=== PATIENT | female | born 1935 | race Caucasian/White ===

== ENCOUNTER → 2016-10-10 | Outpatient (CLI) | payer MEDICARE ==
[~2016-10-10] MED LIST: ADVIL JUNIOR100 MG PO; AMBIEN 5MG TABLE5 MG PO; AMOXICILLIN875 MG PO; ASPIRIN 32325 MG/TAB PO; ATIVAN 0.50.5 MG/TAB PO; CARAFATE 1GM1 G PO; COLACE 100100 MG/CAP PO; FENTANYL 25 MCG TOP; GOOD SENSE400 MG/5 M PO; KRISTALOSE20 GM/PACK PO; LEVAQUIN 750MG750 M1 PO; LIDODERM PATCH TP; LORTAB 5/500 501 TAB PO; LOVENOX 4040 MG/0.4 SQ; NICODERM C21 MG/PATC TOP; NORCO 325 MG-7.1 TAB PO; PRILOSEC 20MG20 MG PO; PRINIVIL5 MG PO; PROZAC 10MG10 MG PO; REQUIP 0.5MG0.5 MG PO; TYLENOL 325MG325 MG PO; TYLENOL 500MG500 MG PO; ULTRAM 50MG TAB50 MG PO; VICODIN 5/5001 UDTAB PO; ZOFRAN 4MG T4 MG/TAB PO
[2016-10-10 19:58] LABS: CALCIUM 11.1 mg/dL (8.4-10.2); CREATININE, serum 2.15 mg/dL (0.52-1.25); POTASSIUM 4.7 mmol/L (3.4-5.0)
== END ==
LOC: ZCOL.LAB 19:30
PROVIDERS: Internal Medicine
DX: E55.9 Vitamin D deficiency, unspecified (principal); Z02.89 Encounter for other administrative examinations

== ENCOUNTER → 2016-10-23 | Outpatient (CLI) | payer MEDICARE ==
[2016-10-23 21:12] LABS: CALCIUM 10.5 mg/dL (8.4-10.2); CREATININE, serum 2.1 mg/dL (0.52-1.25); POTASSIUM 4.6 mmol/L (3.4-5.0)
== END ==
LOC: ZCOL.LAB 20:44
PROVIDERS: Internal Medicine
DX: Z02.89 Encounter for other administrative examinations (principal)

== ENCOUNTER → 2016-12-28 | Outpatient (CLI) | payer MEDICARE | LOC: ZCOL.LAB 15:55 | PROVIDERS: Internal Medicine | DX: Z00.00 Encounter for general adult medical examination without abnormal findings (principal); E55.9 Vitamin D deficiency, unspecified ==

== ENCOUNTER → 2017-01-05 | Outpatient (CLI) | payer MEDICARE | LOC: ZCOL.LAB 12:13 | DX: E55.9 Vitamin D deficiency, unspecified (principal) ==

== ENCOUNTER 2018-09-03 16:02 | Observation (INO) | payer MEDICARE, OTHER ==
[~2018-09-03] VITALS: Ht 165.1 cm; Wt 52.6 kg
[2018-09-03] MEDS ORDERED: NORCO 325 MG-51 TAB PO (16:41)
[2018-09-03 16:45] LABS: BASO # 0.1 (0.0-0.2); BASO % 0.6 % (0.0-2.0); EOS # 0.2 (0.0-0.7); EOS % 1.8 % (0-4.0); GRAN # 6.7 (1.4-6.5); GRAN % 72.2 % (42.2-75.2); HEMOGLOBIN 11.7 g/dl (12.5-16.0); LYMPH # 1.7 (1.2-3.4); LYMPH % 18.4 % (20.0-51.0); MEAN CELL VOLUME 93 fl (80.0-100.0); MEAN CORPUSCULAR HEMOGLOBIN 31 pg (27.0-31.0); MEAN CORPUSCULAR HGB CONC 33 g/dl (33.0-37.0); MEAN PLATELET VOLUME 10.3 fl (7.4-10.4); MONO # 0.6 (0.1-0.6); MONO % 6.4 % (1.7-9.3); PLATELET COUNT 234 K/mm3 (130-400); RED BLOOD COUNT 3.76 M/mm3 (4.10-5.30); REDCELL DISTRIBUTION WIDTH-CV 13.2 % (11.5-14.5)
[2018-09-03 17:03] LABS: ALBUMIN 4.2 gm/dL (3.5-5.0); BILIRUBIN,TOTAL 0.4 mg/dL (0.0-1.0); CALCIUM 9.6 mg/dL (8.4-10.2); CREATININE, serum 2.31 mg/dL (0.52-1.25); POTASSIUM 4.5 mmol/L (3.4-5.0); TOTAL PROTEIN 7.2 gm/dL (6.4-8.2)
--- NOTE | 2018-09-03 18:00 | NUR ---
Patient up to room 342 by cheri. RLE in [facility], pedal pulses intact. Patient and family oriented to room. Call light in reach. Patient states she is feeling nauseated, given medications per orders. IV to left AC infusing fluids per orders via pump.
--- NOTE | 2018-09-03 18:18 | NUR ---
Patient down with radiology by bed.
--- NOTE | 2018-09-03 20:15 | NUR ---
Shift assessment complete. Patient denies pain. Laying in bed, awake. Denies needs at this time. Will continue to monitor.
[2018-09-03 20:20] VITALS: BP 153/99; PULSE 115; TEMP 97.5
[2018-09-03 23:48] VITALS: BP 150/86; PULSE 106; TEMP 97.9
--- NOTE | 2018-09-04 02:10 | NUR ---
Attempted to go through home medications with patient. Patient unable to accurately give information regarding home meds. Will notify day shift.
--- NOTE | 2018-09-04 03:54 | NUR ---
Patient c/o 9/10 pain in right leg after using bed [facility]cdermott. IV pain medication given as ordered. C/o nausea. Antiemetic given per order. Pants and underwear cut off due to being wet, per patient request. Ok to throw pants and underwear away, per pt request.
[2018-09-04 03:57] VITALS: BP 94/70; PULSE 99; TEMP 97.8
--- NOTE | 2018-09-04 04:14 | NUR ---
Patient urinating small amounts, frequently. Strong odor. U/A collected. Will wait for U/A to result.
[2018-09-04 04:29] LABS: COLLECTION METHOD CLEAN CATCH
[2018-09-04 04:47] LABS: MUCOUS Present /lpf; PH 7 (5-8); SQUAMOUS EPITHELIAL 20-50 /hpf; URINE APPEARANCE Cloudy; URINE BACTERIA Rare /hpf; URINE BILIRUBIN Negative (NEGATIVE); URINE BLOOD Negative (NEGATIVE); URINE COLOR Amber; URINE GLUCOSE Negative (NEGATIVE); URINE KETONE Negative (NEGATIVE); URINE LEUKOCYTE ESTERASE 1+ (NEGATIVE); URINE NITRATE Negative (NEGATIVE); URINE PROTEIN(semi-quant) 2+ (NEGATIVE); URINE TRIPLE PHOSPHATE CRYSTAL Present /hpf; URINE UROBILINOGEN Negative (NEGATIVE)
[2018-09-04 07:10] LABS: BASO % 0.2 % (0.0-2.0); GRAN # 10.8 (1.4-6.5); GRAN % 85.8 % (42.2-75.2); HEMOGLOBIN 10.6 g/dl (12.5-16.0); LYMPH # 0.8 (1.2-3.4); LYMPH % 6.1 % (20.0-51.0); MEAN CELL VOLUME 97 fl (80.0-100.0); MEAN CORPUSCULAR HEMOGLOBIN 31 pg (27.0-31.0); MEAN CORPUSCULAR HGB CONC 32 g/dl (33.0-37.0); MEAN PLATELET VOLUME 10.3 fl (7.4-10.4); MONO # 0.9 (0.1-0.6); MONO % 7.3 % (1.7-9.3); PLATELET COUNT 242 K/mm3 (130-400); RED BLOOD COUNT 3.39 M/mm3 (4.10-5.30); REDCELL DISTRIBUTION WIDTH-CV 13.3 % (11.5-14.5)
[2018-09-04 07:11] LABS: HEMATOCRIT 32.8 % (37.0-47.0)
[2018-09-04 07:13] LABS: CALCIUM 9.1 mg/dL (8.4-10.2); CREATININE, serum 2.22 mg/dL (0.52-1.25); POTASSIUM 4.8 mmol/L (3.4-5.0)
--- NOTE | 2018-09-04 08:00 | NUR ---
Patient in bed resting. Alert and forgetful. Pedal pulses intact. RLE in irom brace. Denies pain at this time. Denies further needs at this time.
[2018-09-04 09:30] VITALS: BP 145/84; PULSE 96; TEMP 97.5
--- NOTE | 2018-09-04 10:42 | NUR ---
Initial visit; Patient thanked Plumber Supervisor for looking in on her and offering comfort and prayer. Plumber Supervisor offered encouragement as well and will follow up while patient is here at [facility].
[2018-09-04] MEDS ORDERED: ADVIL200 MG PO (10:54)
[2018-09-04 11:30] VITALS: BP 151/76; PULSE 95; TEMP 97.7
[2018-09-04 13:48] LABS: COLLECTION METHOD CLEAN CATCH
[2018-09-04 13:58] LABS: PH 7 (5-8); SQUAMOUS EPITHELIAL 0-2 /hpf; URINE APPEARANCE Hazy; URINE BACTERIA None Seen /hpf; URINE BILIRUBIN Negative (NEGATIVE); URINE BLOOD Negative (NEGATIVE); URINE COLOR Yellow; URINE GLUCOSE Negative (NEGATIVE); URINE KETONE Negative (NEGATIVE); URINE LEUKOCYTE ESTERASE 2+ (NEGATIVE); URINE NITRATE Negative (NEGATIVE); URINE PROTEIN(semi-quant) 1+ (NEGATIVE); URINE RBC 0-2 /hpf; URINE UROBILINOGEN Negative (NEGATIVE)
--- NOTE | 2018-09-04 14:58 | NUR ---
SW contatced patient's son, Alex ([phone]) about PT/OT recommending SNF. SW explained to Alex that Medicare will not cover SNF due to observation status. Alex reports he is unable to private pay for SNF. SW inquired if patient has ever applied for medicaid and if not, would that be something they would like to do. Alex reports he would like to meet with a financial counselor about that. Alex will be here tomorrow morning to complete medicaid amor with the financial counselor.
[2018-09-04 15:34] VITALS: BP 145/72; PULSE 89; TEMP 97.6
--- NOTE | 2018-09-04 18:23 | NUR ---
Patient has been up in chair most of the day. x1 assist to comode. Restarted iv to left forarm. Discontinued IV to right forarm d/t infiltration of NS. Catheter tip intact. Denies further needs at this time. Will report off to team leader/research psychologist.
[2018-09-04 20:00] VITALS: BP 151/69; PULSE 47; TEMP 97.3
[2018-09-04 23:48] VITALS: BP 116/68; PULSE 105; TEMP 97.7
[2018-09-05 03:24] VITALS: BP 84/54; PULSE 97; TEMP 98.1
--- NOTE | 2018-09-05 04:56 | NUR ---
Pt rested during the night, no C/O pain, neuro checks have shown no deficit, no problems noted during shift assessments, VS have remained stable.
--- NOTE | 2018-09-05 07:00 | NUR ---
Pt AAOx3 stating wish to rest more. Denies pain at this time. States pt's son will be in to visit this morning.
[2018-09-05 07:38] VITALS: BP 140/68; PULSE 96; TEMP 97.8
[2018-09-05 07:57] LABS: BASO % 0.4 % (0.0-2.0); EOS # 0.1 (0.0-0.7); EOS % 0.7 % (0-4.0); GRAN # 8.2 (1.4-6.5); GRAN % 82.2 % (42.2-75.2); LYMPH # 0.9 (1.2-3.4); LYMPH % 8.6 % (20.0-51.0); MEAN CELL VOLUME 98 fl (80.0-100.0); MEAN CORPUSCULAR HGB CONC 32 g/dl (33.0-37.0); MEAN PLATELET VOLUME 10.2 fl (7.4-10.4); MONO # 0.7 (0.1-0.6); MONO % 7.3 % (1.7-9.3); PLATELET COUNT 181 K/mm3 (130-400); RED BLOOD COUNT 2.82 M/mm3 (4.10-5.30); REDCELL DISTRIBUTION WIDTH-CV 13.4 % (11.5-14.5)
[2018-09-05 07:58] LABS: HEMATOCRIT 27.7 % (37.0-47.0); HEMOGLOBIN 8.8 g/dl (12.5-16.0); MEAN CORPUSCULAR HEMOGLOBIN 31 pg (27.0-31.0)
[2018-09-05 08:10] LABS: CALCIUM 8.3 mg/dL (8.4-10.2); CREATININE, serum 1.87 mg/dL (0.52-1.25); POTASSIUM 4.2 mmol/L (3.4-5.0)
[2018-09-05 08:30] LABS: BUDDING YEAST Present /hpf
--- NOTE | 2018-09-05 11:14 | NUR ---
Pts IV site to Left forearm has visible blood. IV d/c per Pt to have all PO meds. Ice provided to Right leg for pain intervention.
[2018-09-05 12:22] VITALS: BP 118/69; PULSE 94; TEMP 97.9
--- NOTE | 2018-09-05 13:40 | NUR ---
Pt passing flatus but no bm. Pt up in chair. Ice applied to Right leg for pain intervention
--- NOTE | 2018-09-05 14:49 | NUR ---
CHRISTINE talked with patients son shubham about discharge plan. Patient is unable to go home at discharge however she does not qualify for long-term due to her status. Patients son applied for medicaid, however he has savings that could make it where she doesnt qualify. SW has made a medicaid pending referral to [facility] and a [facility] bed referral to [facility]. [facility] denies patient due to her being unable to bear weight. CHRISTINE called shubham and discussed placement issues and that his savings could make it where they dont qualify for [facility]. He agrees to get pricing for a private pay respite stay at the [facility] in [place] but he wants to talk to dr reinoso before making any decisions. CHRISTINE obtained private pay pricing for son.
--- NOTE | 2018-09-05 14:54 | NUR ---
Pt attempting to get out of chair without calling for help. Pt moved closer to nurses station
[2018-09-05 16:08] VITALS: BP 119/97; PULSE 115; TEMP 97.8
[2018-09-05 19:40] VITALS: BP 108/88; BP 50/38; PULSE 98; TEMP 98
--- NOTE | 2018-09-05 21:39 | NUR ---
Pt in bed, has C/O pain 8-9, placed ice packs on each side of knee, left Pt call light in reach, bed in lowest position.
[2018-09-05 23:15] VITALS: BP 149/68; PULSE 102; TEMP 99
[2018-09-06 03:25] VITALS: BP 152/68; PULSE 100; TEMP 97.7
--- NOTE | 2018-09-06 05:45 | NUR ---
Pt did not sleep well during the night, she had C/O pain from her right and left legs and buttox area, pain medication was given for relief, Pt was aggitated at times and yelling out. Medication was ordered and given to calm Pt and allow her to sleep. VS have remained stable overnight.
[2018-09-06 06:41] LABS: BASO # 0.1 (0.0-0.2); BASO % 0.5 % (0.0-2.0); EOS # 0.1 (0.0-0.7); EOS % 1.1 % (0-4.0); GRAN # 7.7 (1.4-6.5); GRAN % 76.8 % (42.2-75.2); LYMPH # 1.2 (1.2-3.4); LYMPH % 12.3 % (20.0-51.0); MEAN CELL VOLUME 96 fl (80.0-100.0); MEAN CORPUSCULAR HGB CONC 33 g/dl (33.0-37.0); MEAN PLATELET VOLUME 10.5 fl (7.4-10.4); MONO # 0.9 (0.1-0.6); MONO % 8.6 % (1.7-9.3); PLATELET COUNT 184 K/mm3 (130-400); RED BLOOD COUNT 2.83 M/mm3 (4.10-5.30); REDCELL DISTRIBUTION WIDTH-CV 13.3 % (11.5-14.5)
[2018-09-06 06:44] LABS: HEMATOCRIT 27.1 % (37.0-47.0); HEMOGLOBIN 8.8 g/dl (12.5-16.0); MEAN CORPUSCULAR HEMOGLOBIN 31 pg (27.0-31.0)
[2018-09-06 06:47] LABS: CALCIUM 8.9 mg/dL (8.4-10.2); CREATININE, serum 1.93 mg/dL (0.52-1.25); POTASSIUM 4.3 mmol/L (3.4-5.0)
[2018-09-06 07:52] VITALS: BP 131/88; PULSE 107; TEMP 97.7
--- NOTE | 2018-09-06 08:00 | NUR ---
PATIENT IS ALERT AND ABLE TO STATE NAME, BIRTHDATE, [facility], THAT THE MONTH IS AUGUST. PATIENT STATES THAT THE YEAR IS 2003. PATIENT RE-ORIENTED. PATIENT IS INTERMITTENTLY CONFUSED WITH AGITATION. TACHYCARDIA NOTED, OTHERWISE VSS. BOWEL SOUNDS ACTIVE ALL FOUR QUADRANTS. PATIENT TOLERATING DIET WITHOUT ANY COMPLAINTS OF N/V. POSITIVE PEDAL PULSES EQUAL BILATERALLY. CAP REFILL <3 SECONDS. CMS INTACT. 3+ PITTING-EDEMA TO RIGHT FOOT. IROM BRACE TO RLE LOCKED AT 0 DEGREES. ICE PACK TO RIGHT KNEE. GENERALIZED WEAKNESS NOTED. CALL LIGHT WITHIN REACH. 1-1 SITTER AT BEDSIDE. NO NEEDS AT THIS TIME.
--- NOTE | 2018-09-06 08:01 | NUR ---
Pt sitting in bed complaining of pain 02/25 with request of pain medication. Admin PRN [place]. Pt wants to move around reoriented her to watching some tv. Pt requested some coffee but does not want food at this time, but stated may want some later. VSS. Assessment as charted. Pt complained of some dizziness, will continue to monitor.
--- NOTE | 2018-09-06 10:56 | NUR ---
[facility] can accept for a 6 week private pay respite stay. SW attempted to contact son, left a VM. Waiting to hear from [facility].
[2018-09-06 12:00] VITALS: BP 158/75; PULSE 95; TEMP 97.8
--- NOTE | 2018-09-06 13:15 | NUR ---
Pt is sitting in bed. Has been very restless this afternoon and most of the day, with small periods of relaxation and a little sleep. Provide pt with two ice packs for right leg. Son is here to visit. Social work came to schedule transfer to inpatient rehab. No further needs stated. Call light within reach. Reported off to Primary Nurse ARELY Arizmendi.
--- NOTE | 2018-09-06 13:26 | NUR ---
CHRISTINE met with patients son to discuss placement. He would like her to go to [facility] for a respite stay with PT/OT part b to eval and treat. CHRISTINE called [facility] who is willing to accept and would like a 30 day or less order. CHRISTINE informed son he will need to prepay for the last 10 days of the month when she gets there. He is agreeable. CHRISTINE informed PA of dc and orders needed. Transport set for 3pm via wheelchair van. No other discharge needs at this time.
[2018-09-06] MEDS ORDERED: OMNICEF 300MG300 MG PO (14:27)
[2018-09-06] MEDS ORDERED: NORCO 325 MG-51 TAB PO (14:29)
[2018-09-06 14:50] VITALS: BP 158/75; PULSE 95; TEMP 97.8
--- NOTE | 2018-09-06 15:30 | NUR ---
PATIENT PERSONAL BELONGINGS GATHERED. PATIENT TAKEN TO PRIVATE TRANSPORT VEHICLE VIA WHEELCHAIR BY SURGICAL STAFF. PATIENT TRANSFERRED.
--- NOTE | 2018-09-06 16:35 | NUR ---
REPORT CALLED TO DON. XIN
== END 2018-09-06 15:30 ==
LOC: COL.ER 16:02 → SURG 17:23
PROVIDERS: Emergency Medicine; Physician Assistant; ADMIT Family Medicine
DX: S82.251A Displaced comminuted fracture of shaft of right tibia, initial encounter for closed fracture (principal); S82.451A Displaced comminuted fracture of shaft of right fibula, initial encounter for closed fracture; W18.30XA Fall on same level, unspecified, initial encounter; F17.210 Nicotine dependence, cigarettes, uncomplicated; F03.90 Unspecified dementia, unspecified severity, without behavioral disturbance, psychotic disturbance, mood disturbance, and anxiety; N18.9 Chronic kidney disease, unspecified; N39.0 Urinary tract infection, site not specified; I95.9 Hypotension, unspecified; D64.9 Anemia, unspecified; E44.0 Moderate protein-calorie malnutrition; Z90.710 Acquired absence of both cervix and uterus; Z90.49 Acquired absence of other specified parts of digestive tract
CPT/HCPCS: 99232-AI; 99233-AI; G0008; G0378; J1644; J2270; J2405; J7030; L1846

== ENCOUNTER → 2018-09-23 | Outpatient (REF) ==
[~2018-09-23] MED LIST changes: +ADVIL200 MG PO; +NORCO 325 MG-51 TAB PO; +OMNICEF 300MG300 MG PO
[2018-09-23 15:30] LABS: COLLECTION METHOD CLEAN CATCH
[2018-09-23 15:53] LABS: PH 6 (5-8); SQUAMOUS EPITHELIAL None Seen /hpf; URINE APPEARANCE Turbid; URINE BACTERIA Rare /hpf; URINE BILIRUBIN Negative (NEGATIVE); URINE BLOOD 1+ (NEGATIVE); URINE COLOR Yellow; URINE GLUCOSE Negative (NEGATIVE); URINE KETONE Negative (NEGATIVE); URINE LEUKOCYTE ESTERASE 3+ (NEGATIVE); URINE NITRATE Positive (NEGATIVE); URINE PROTEIN(semi-quant) 2+ (NEGATIVE); URINE RBC 20-50 /hpf; URINE UROBILINOGEN Negative (NEGATIVE)
== END ==
LOC: ZCOL.LAB 15:28
PROVIDERS: Internal Medicine
DX: N39.0 Urinary tract infection, site not specified (principal)

== ENCOUNTER → 2018-09-25 | Outpatient (CLI) | payer MEDICARE ==
[2018-09-25 13:54] LABS: MEAN CELL VOLUME 93 fl (80.0-100.0); MEAN CORPUSCULAR HGB CONC 32 g/dl (33.0-37.0); MEAN PLATELET VOLUME 9.7 fl (7.4-10.4); PLATELET COUNT 440 K/mm3 (130-400); RED BLOOD COUNT 2.96 M/mm3 (4.10-5.30); REDCELL DISTRIBUTION WIDTH-CV 13.7 % (11.5-14.5)
[2018-09-25 13:57] LABS: HEMATOCRIT 27.5 % (37.0-47.0); HEMOGLOBIN 8.9 g/dl (12.5-16.0); MEAN CORPUSCULAR HEMOGLOBIN 30 pg (27.0-31.0)
[2018-09-25 14:05] LABS: CALCIUM 9.7 mg/dL (8.4-10.2); CREATININE, serum 1.88 (0.52-1.25); POTASSIUM 5.4 mmol/L (3.4-5.0)
[2018-09-25 14:06] LABS: LYMPHOCYTE 15 % (20.0-51.0); NEUTROPHILS 80 % (42.0-75.2); PLATELET ESTIMATE INCREASED (NORMAL)
== END ==
LOC: ZCOL.LAB 13:29
PROVIDERS: Internal Medicine
DX: M62.81 Muscle weakness (generalized) (principal)

== ENCOUNTER → 2018-10-09 | Outpatient (REF) ==
[2018-10-09 03:02] LABS: COLLECTION METHOD CLEAN CATCH
[2018-10-09 03:07] LABS: MUCOUS Present /lpf; PH 5 (5-8); SQUAMOUS EPITHELIAL 0-2 /hpf; URINE APPEARANCE Hazy; URINE BACTERIA None Seen /hpf; URINE BILIRUBIN Negative (NEGATIVE); URINE BLOOD Negative (NEGATIVE); URINE COLOR Yellow; URINE GLUCOSE Negative (NEGATIVE); URINE KETONE Negative (NEGATIVE); URINE LEUKOCYTE ESTERASE 1+ (NEGATIVE); URINE NITRATE Positive (NEGATIVE); URINE PROTEIN(semi-quant) Negative (NEGATIVE); URINE RBC 0-2 /hpf; URINE UROBILINOGEN Negative (NEGATIVE)
== END ==
LOC: ZCOL.LAB 03:00
PROVIDERS: Internal Medicine
DX: Z01.89 Encounter for other specified special examinations (principal)

== ENCOUNTER → 2018-12-30 | Outpatient (CLI) | payer MEDICARE ==
[2018-12-30 12:04] LABS: CALCIUM 10.5 mg/dL (8.4-10.2); CREATININE, serum 1.62 (0.52-1.25)
== END ==
LOC: ZCOL.LAB 10:32
PROVIDERS: Internal Medicine
DX: E87.6 Hypokalemia (principal)

== ENCOUNTER → 2019-01-21 | Outpatient (CLI) | payer MEDICARE ==
[2019-01-21 17:37] LABS: BASO # 0.1 (0.0-0.2); BASO % 0.6 % (0.0-2.0); EOS # 0.1 (0.0-0.7); EOS % 1.4 % (0-4.0); GRAN # 6.5 (1.4-6.5); GRAN % 76.9 % (42.2-75.2); HEMATOCRIT 37.4 % (37.0-47.0); HEMOGLOBIN 11.7 g/dl (12.5-16.0); LYMPH # 1.3 (1.2-3.4); LYMPH % 15.2 % (20.0-51.0); MEAN CELL VOLUME 93 fl (80.0-100.0); MEAN CORPUSCULAR HEMOGLOBIN 29 pg (27.0-31.0); MEAN CORPUSCULAR HGB CONC 31 g/dl (33.0-37.0); MEAN PLATELET VOLUME 10.8 fl (7.4-10.4); MONO # 0.5 (0.1-0.6); MONO % 5.5 % (1.7-9.3); PLATELET COUNT 235 K/mm3 (130-400); RED BLOOD COUNT 4.04 M/mm3 (4.10-5.30); REDCELL DISTRIBUTION WIDTH-CV 15.2 % (11.5-14.5)
[2019-01-21 17:52] LABS: ALANINE AMINOTRANSFERASE < 6 U/L (9-52); ALKALINE PHOSPHATASE 63 U/L (50-136); ANION GAP 11 mmol/L (7-16); AST,SGOT 16 U/L (15-37); BILIRUBIN,TOTAL 0.3 mg/dL (0.0-1.0); BLOOD UREA NITROGEN 40 mg/dL (7-17); CALCIUM 10.1 mg/dL (8.4-10.2); CARBON DIOXIDE 21 mmol/L (22-30); CHLORIDE 110 mmol/L (98-107); CREATININE, serum 1.73 (0.52-1.25); GLUCOSE 76 mg/dL (74-106); POTASSIUM 4.5 mmol/L (3.4-5.0); SODIUM 142 mmol/L (137-145); TOTAL PROTEIN 6.7 gm/dL (6.4-8.2)
== END ==
LOC: ZCOL.LAB 14:27
PROVIDERS: Internal Medicine
DX: R79.89 Other specified abnormal findings of blood chemistry (principal); R68.89 Other general symptoms and signs

== ENCOUNTER → 2019-02-20 | Outpatient (CLI) | payer MEDICARE ==
[2019-02-20 11:27] LABS: BASO # 0.1 (0.0-0.2); EOS # 0.2 (0.0-0.7); EOS % 2.6 % (0-4.0); GRAN # 4.6 (1.4-6.5); HEMOGLOBIN 11.3 g/dl (12.5-16.0); LYMPH # 0.9 (1.2-3.4); LYMPH % 15.1 % (20.0-51.0); MEAN CELL VOLUME 90 fl (80.0-100.0); MEAN CORPUSCULAR HEMOGLOBIN 29 pg (27.0-31.0); MEAN CORPUSCULAR HGB CONC 33 g/dl (33.0-37.0); MEAN PLATELET VOLUME 9.9 fl (7.4-10.4); MONO # 0.5 (0.1-0.6); PLATELET COUNT 249 K/mm3 (130-400); RED BLOOD COUNT 3.85 M/mm3 (4.10-5.30); REDCELL DISTRIBUTION WIDTH-CV 14.3 % (11.5-14.5)
[2019-02-20 11:28] LABS: HEMATOCRIT 34.6 % (37.0-47.0)
[2019-02-20 11:52] LABS: ERYTHROCYTE SEDIMENTATION RATE 18 mm/hr (0-30)
== END ==
LOC: ZCOL.LAB 11:14
DX: F33.9 Major depressive disorder, recurrent, unspecified (principal)

== ENCOUNTER → 2019-02-26 | Outpatient (CLI) | payer MEDICARE ==
[2019-02-26 18:03] LABS: CALCIUM 10.5 mg/dL (8.4-10.2); CREATININE, serum 1.81 (0.52-1.25); POTASSIUM 4.1 mmol/L (3.4-5.0)
== END ==
LOC: ZCOL.LAB 16:23
DX: S82.201D Unspecified fracture of shaft of right tibia, subsequent encounter for closed fracture with routine healing (principal)

== ENCOUNTER → 2019-03-15 | Outpatient (CLI) | payer MEDICARE ==
[~2019-03-15] MED LIST changes: +ASPIRIN E.C. 8181 MG PO; +CALCIUM 600-D 61 TAB PO; +CELEXA10 MG PO; +DULCOLAX TAB5 MG PO; +GENTLE LAXATIVE5 MG PO; +INCRUSE EL62.5 MCG/A IH; +MIRALAX PA17 GM/Dose PO; +MULTIPLE VITAMI1 TA1 PO; +NICODERM C21 MG/PATC TD; +NIZORAL SHAMPO120 M1 TP; +PHARMASSURE ZIN50 MG PO; +PLAVIX 75MG TAB75 MG PO; +PREDNISONE20 MG PO; +REMERON 15M15 MG/TA1 PO; +REMERON SOLTAB15 MG PO; +TRIAM OI 15 0.025 TOP; +VENTOLIN0.09 MG IH; +VITAMIN C500 MG PO
[2019-03-15 23:53] LABS: BASO % 0.1 % (0.0-2.0); EOS % 0.1 % (0-4.0); GRAN # 12.7 (1.4-6.5); GRAN % 89.1 % (42.2-75.2); LYMPH # 0.9 (1.2-3.4); LYMPH % 6.1 % (20.0-51.0); MONO # 0.5 (0.1-0.6); MONO % 3.5 % (1.7-9.3)
[2019-03-16 00:15] LABS: CREATININE, serum 1.55 (0.52-1.25); POTASSIUM 3.7 mmol/L (3.4-5.0)
== END ==
LOC: COL.LAB 23:21 → ZCOL.LAB 23:21
PROVIDERS: Internal Medicine
DX: R41.82 Altered mental status, unspecified (principal)

== ENCOUNTER → 2019-03-18 | Outpatient (CLI) | payer MEDICARE ==
[2019-03-18 16:40] LABS: HEMATOCRIT 26.9 % (37.0-47.0); HEMOGLOBIN 8.6 g/dl (12.5-16.0); MEAN CELL VOLUME 93 fl (80.0-100.0); MEAN CORPUSCULAR HEMOGLOBIN 30 pg (27.0-31.0); MEAN CORPUSCULAR HGB CONC 32 g/dl (33.0-37.0); MEAN PLATELET VOLUME 10.3 fl (7.4-10.4); PLATELET COUNT 299 K/mm3 (130-400)
[2019-03-18 16:51] LABS: ALBUMIN 3.4 gm/dL (3.5-5.0); BILIRUBIN,TOTAL 0.3 mg/dL (0.0-1.0); CALCIUM 9.8 mg/dL (8.4-10.2); CREATININE, serum 1.51 (0.52-1.25); POTASSIUM 3.5 mmol/L (3.4-5.0)
== END ==
LOC: ZCOL.LAB 15:19
PROVIDERS: Internal Medicine
DX: D64.9 Anemia, unspecified (principal)

== ENCOUNTER → 2019-04-16 | Outpatient (CLI) | payer MEDICARE | LOC: ZCOL.LAB 10:51 | DX: L89.890 Pressure ulcer of other site, unstageable (principal) ==

== ENCOUNTER → 2019-04-22 | Outpatient (CLI) | payer MEDICARE | LOC: COL.RAD 08:15 | DX: N18.4 Chronic kidney disease, stage 4 (severe) (principal) ==

== ENCOUNTER → 2019-04-22 | Outpatient (CLI) | payer MEDICARE ==
[2019-04-22 14:39] LABS: BASO # 0.1 (0.0-0.2); BASO % 0.7 % (0.0-2.0); EOS # 0.1 (0.0-0.7); EOS % 1.3 % (0-4.0); GRAN # 6.7 (1.4-6.5); GRAN % 77.7 % (42.2-75.2); LYMPH # 1.3 (1.2-3.4); MEAN CELL VOLUME 94 fl (80.0-100.0); MEAN CORPUSCULAR HGB CONC 30 g/dl (33.0-37.0); MEAN PLATELET VOLUME 10.1 fl (7.4-10.4); MONO # 0.4 (0.1-0.6); MONO % 4.3 % (1.7-9.3); PLATELET COUNT 304 K/mm3 (130-400); RED BLOOD COUNT 2.96 M/mm3 (4.10-5.30); REDCELL DISTRIBUTION WIDTH-CV 15.9 % (11.5-14.5)
[2019-04-22 14:42] LABS: CREATININE, serum 1.59 (0.52-1.25); POTASSIUM 3.6 mmol/L (3.4-5.0)
[2019-04-22 14:43] LABS: HEMATOCRIT 27.7 % (37.0-47.0); HEMOGLOBIN 8.3 g/dl (12.5-16.0); MEAN CORPUSCULAR HEMOGLOBIN 28 pg (27.0-31.0)
== END ==
LOC: ZCOL.LAB 13:16
PROVIDERS: Internal Medicine
DX: R79.89 Other specified abnormal findings of blood chemistry (principal)

== ENCOUNTER → 2019-05-12 | Outpatient (CLI) | payer MEDICARE ==
[2019-05-12 17:13] LABS: BASO # 0.1 (0.0-0.2); BASO % 0.8 % (0.0-2.0); EOS # 0.2 (0.0-0.7); EOS % 2.1 % (0-4.0); GRAN # 7.8 (1.4-6.5); GRAN % 77.1 % (42.2-75.2); LYMPH # 1.2 (1.2-3.4); LYMPH % 12.2 % (20.0-51.0); MEAN CELL VOLUME 93 fl (80.0-100.0); MEAN CORPUSCULAR HGB CONC 31 g/dl (33.0-37.0); MONO # 0.7 (0.1-0.6); MONO % 6.9 % (1.7-9.3); PLATELET COUNT 346 K/mm3 (130-400); RED BLOOD COUNT 2.68 M/mm3 (4.10-5.30); REDCELL DISTRIBUTION WIDTH-CV 17.2 % (11.5-14.5)
[2019-05-12 17:20] LABS: ALBUMIN 3.6 gm/dL (3.5-5.0); BILIRUBIN,TOTAL 0.1 mg/dL (0.0-1.0); CALCIUM 10.5 mg/dL (8.4-10.2); CREATININE, serum 1.79 (0.52-1.25); POTASSIUM 4.7 mmol/L (3.4-5.0); TOTAL PROTEIN 6.1 gm/dL (6.4-8.2)
[2019-05-12 17:23] LABS: HEMATOCRIT 24.9 % (37.0-47.0); HEMOGLOBIN 7.7 g/dl (12.5-16.0); MEAN CORPUSCULAR HEMOGLOBIN 29 pg (27.0-31.0)
== END ==
LOC: ZCOL.LAB 16:41
PROVIDERS: Internal Medicine Interventional Cardiology
DX: E78.00 Pure hypercholesterolemia, unspecified (principal); R79.89 Other specified abnormal findings of blood chemistry

== ENCOUNTER 2019-05-16 10:00 | Outpatient (RCR) | payer MEDICARE ==
[2019-05-14 12:03] VITALS: BP 133/91; PULSE 90; TEMP 98
[2019-05-14 12:20] VITALS: BP 132/89; PULSE 84; TEMP 97.9
[2019-05-14 12:27] VITALS: BP 112/60; PULSE 89; TEMP 97.2
[2019-05-14 12:45] VITALS: BP 121/81; PULSE 89; TEMP 97.3
[2019-05-14 13:47] VITALS: BP 134/87; PULSE 85; TEMP 98.6
--- NOTE | 2019-05-14 14:32 | NUR ---
Pt tolerated transfusion well, pt's son was at bs for duration of transfusion. pt was able to eat dinner with no problem, she was assisted to toilet after transfusion as attends were changed, reapplication of ointment to irritated skin. iv dc'd with cath intact, pressure held, dressing applied. Pt's son escorted her to exit where [facility] from [facility] will pick her up.
[~2019-05-16] VITALS: Ht 160 cm; Wt 44.2 kg
[~2019-05-16 10:00] MED LIST changes: +ARICEPT 5MG PO
[2019-05-16 12:11] VITALS: BP 158/81; PULSE 72; TEMP 97.9
[2019-05-16 12:16] VITALS: BP 160/88; PULSE 78; TEMP 97.9
[2019-05-16 12:29] VITALS: BP 151/85; BP 158/84; PULSE 71; TEMP 98.1
[2019-05-16 12:45] VITALS: BP 164/83; PULSE 87; TEMP 97.9
[2019-05-16 13:15] VITALS: BP 155/76; PULSE 83; TEMP 97
[2019-05-16 14:07] VITALS: BP 159/77; PULSE 79; TEMP 97.8
== END 2019-05-16 14:50 ==
LOC: EUO 10:00
DX: D64.9 Anemia, unspecified (principal)
CPT/HCPCS: J7050; P9016

== ENCOUNTER → 2019-05-26 | Outpatient (CLI) | payer MEDICARE | LOC: ZCOL.LAB 17:20 | DX: L89.90 Pressure ulcer of unspecified site, unspecified stage (principal) ==

== ENCOUNTER → 2019-05-29 | Outpatient (CLI) | payer MEDICARE ==
[2019-05-29 17:46] LABS: CALCIUM 10.9 mg/dL (8.4-10.2); CREATININE, serum 1.89 (0.52-1.25); POTASSIUM 4.5 mmol/L (3.4-5.0)
[2019-05-29 17:47] LABS: BASO # 0.1 (0.0-0.2); BASO % 0.7 % (0.0-2.0); EOS # 0.2 (0.0-0.7); EOS % 1.9 % (0-4.0); GRAN # 6.5 (1.4-6.5); HEMATOCRIT 35.3 % (37.0-47.0); HEMOGLOBIN 11.2 g/dl (12.5-16.0); LYMPH # 1.1 (1.2-3.4); MEAN CELL VOLUME 90 fl (80.0-100.0); MEAN CORPUSCULAR HEMOGLOBIN 28 pg (27.0-31.0); MEAN CORPUSCULAR HGB CONC 32 g/dl (33.0-37.0); MEAN PLATELET VOLUME 10.7 fl (7.4-10.4); MONO # 0.7 (0.1-0.6); MONO % 7.9 % (1.7-9.3); PLATELET COUNT 259 K/mm3 (130-400); RED BLOOD COUNT 3.94 M/mm3 (4.10-5.30); REDCELL DISTRIBUTION WIDTH-CV 15.3 % (11.5-14.5)
== END ==
LOC: ZCOL.LAB 17:30
PROVIDERS: Internal Medicine
DX: I13.0 Hypertensive heart and chronic kidney disease with heart failure and stage 1 through stage 4 chronic kidney disease, or unspecified chronic kidney disease (principal); I99.8 Other disorder of circulatory system

== ENCOUNTER → 2019-06-05 | Outpatient (CLI) | payer MEDICARE ==
[2019-06-05 20:02] LABS: ALBUMIN 3.9 gm/dL (3.5-5.0); BILIRUBIN,TOTAL 0.2 mg/dL (0.0-1.0); CALCIUM 11.1 mg/dL (8.4-10.2); CREATININE, serum 1.93 (0.52-1.25); POTASSIUM 4.5 mmol/L (3.4-5.0); TOTAL PROTEIN 6.7 gm/dL (6.4-8.2)
== END ==
LOC: ZCOL.LAB 15:09
PROVIDERS: Internal Medicine Rheumatology
DX: E43 Unspecified severe protein-calorie malnutrition (principal)

== ENCOUNTER → 2019-07-23 | Outpatient (CLI) | payer MEDICARE | LOC: ZCOL.LAB 14:38 | DX: L08.9 Local infection of the skin and subcutaneous tissue, unspecified (principal) ==

== ENCOUNTER → 2019-09-30 | Outpatient (CLI) | payer MEDICARE, MEDICAID ==
[2019-09-30 16:41] LABS: RETIC # 0.05 M/mm3 (0.02-0.16); RETIC % 1.9 % (0.5-3.52)
[2019-09-30 17:11] LABS: ANISOCYTOSIS 3+; BAND 1 % (0-10); LYMPHOCYTE 4 % (20.0-51.0); NEUTROPHILS 94 % (42.0-75.2)
[2019-09-30 17:13] LABS: OVALOCYTES 2+; PLATELET ESTIMATE NORMAL (NORMAL); POIKILOCYTOSIS 3+
== END ==
LOC: ZCOL.LAB 16:21
PROVIDERS: Internal Medicine
DX: D64.9 Anemia, unspecified (principal); Z79.82 Long term (current) use of aspirin; Z79.899 Other long term (current) drug therapy